=== PATIENT | female | born 1985 | race Caucasian/White ===

== ENCOUNTER 2016-08-20 14:49 | Outpatient (CLI) | payer MEDICAID ==
[~2016-08-20] VITALS: Ht 157.5 cm; Wt 71.3 kg
[~2016-08-20 14:49] MED LIST: ACET500C5 PO
[2016-08-20] MEDS ORDERED: PRENAT PO (15:06)
[2016-08-20 15:07] VITALS: Ht 157.5 cm; Wt 71.3 kg
[2016-08-20] MEDS ORDERED: FERR325C PO (15:07)
[2016-08-20 15:08] VITALS: BP 108/53; PULSE 65; RESP 18
--- NOTE | 2016-08-20 15:32 | RADRPT ---
PROCEDURE: US OB. CLINICAL INDICATION: Size and dates , contractions TECHNIQUE: Multiple sonographic images of the pelvis and gravid uterus were obtained. The images were reviewed on a PACS workstation. COMPARISON: 03/16/2016 FINDINGS: There is a single viable intrauterine gestation. Cardiac activity is present with 124 beats per min carlitos. There is a vertex presentation. The placenta is posterior. There is no evidence for an abruption or placenta previa. There is a normal amount of amniotic fluid with an JALEN = 10.9 cm. Measurements were made in order to determine age. The results are as follows: BPD =8.9 cm HC =32 cm AC =32 cm FL =6.9 cm Estimated gestational age of approximately 35 weeks and 6 days based on ultrasound measurements. Clinical age: 37 weeks and 1 day. The estimated date of delivery is 09/18/16, based on ultrasound measurements. The EFW = 2767 g, 22.7%, based on LMP age. RPTAT: AA IMPRESSION: Single viable intrauterine gestation of approximately 35 weeks and 6 days based on ultrasound measu rements. .Durga Mueller MD, MD Date Time Electronically viewed and signed by .Durga Mueller MD, MD on 08/20/2016 15:31 .S/
--- NOTE | 2016-08-20 15:34 | RADRPT ---
PROCEDURE: US OB biophysical profile. CLINICAL INDICATION: decreased movements, contraction TECHNIQUE: Multiple sonographic images of the pelvis were obtained. The images were reviewed on a PACS workstation. COMPARISON: 03/16/2016 FINDINGS: There is a single viable intrauterine gestation. Cardiac activity is present with 128 beats per min carlitos. There is a vertex presentation. The placenta is posterior. There is no evidence for an abruption or placenta previa. There is a normal amount of amniotic fluid with an JALEN = 10.9 cm. Biophysical profile: movement 2/2 tone 2/2. breathing 2/2 JALEN 2/2 Total 03/24 RPTAT: AA . IMPRESSION: Normal biophysical profile. . .Durga Mueller MD, Date Time Electronically viewed and signed by .Durga Mueller MD, MD on 08/20/2016 15:34 .S/
[2016-08-20 20:19] LABS: ADD UMIC YES; URINE BILIRUBIN (Dip) NEGATIVE (NEGATIVE); URINE BLOOD (Dip) NEGATIVE (NEGATIVE); URINE COLOR LT. YELLOW (YELLOW); URINE GLUCOSE (Dip) NEGATIVE (NEGATIVE); URINE KETONES (Dip) 40 (NEGATIVE); URINE LEUKOCYTE ESTERASE (Dip) 1+ (NEGATIVE); URINE NITRITE (Dip) NEGATIVE (NEGATIVE); URINE TOTAL PROTEIN (Dip) NEGATIVE (NEGATIVE); URINE UROBILINOGEN (Dip) 0.2 E.U./dL (0.1-1.0)
[2016-08-20 20:33] LABS: BACTERIA,URINE FEW; SQUAMOUS EPITHELIAL CELL,UR MODERATE; URINE RBCS 0-2 /HPF (0)
--- NOTE | 2016-08-20 20:58 | QN ---
Documentation Comment 31 years old with IUP at 36 + weeks with history of section x 2. sent from the office to triage for r/o labor, due to uterine contractions. Denies any LOF, vaginal bleeding or decreased movement. Denies any other complaint. GA: A&O, NAD Abdomen: Soft, non tender, Fundal height: Appropriate for GA, Iniitial occasional contractions seen on the monitor and resolved with hydration Patient reports feeling comfortable after hydration and denied any pain or contractions NST: Cat 1 BPP: 03/24 UA: Negative Assessment: IUP at 36 weeks + History of section x 2. Plan: Labor precaution [facility] discussed Follow up with OB clinic in 2-3 days Adequate PO Hydration discussed NATHANIEL FONSECA MD Aug 20, 2016 20:58
== END 2016-08-20 20:48 | disposition home or self-care (01) ==
LOC: OBT 14:49 → L-D 14:52 → OBT 20:48
PROVIDERS: ATTEND Obstetrics & Gynecology
DX: O62.9 Abnormality of forces of labor, unspecified (principal); O36.8130 Decreased fetal movements, third trimester, not applicable or unspecified; O34.219 Maternal care for unspecified type scar from previous cesarean delivery; Z3A.36 36 weeks gestation of pregnancy
CPT/HCPCS: 76815; 76818; 81001; Z7500; 81003; G0463